=== PATIENT | male | born 1965 | race Two or more races ===

== ENCOUNTER → 2022-05-17 | Outpatient (CLI) | payer BC | END | disposition home or self-care (01) | LOC: RAD 14:24 | PROVIDERS: ATTEND Physician Assistant Medical | DX: S66.811A Strain of other specified muscles, fascia and tendons at wrist and hand level, right hand, initial encounter (principal); M71.521 Other bursitis, not elsewhere classified, right elbow; M25.821 Other specified joint disorders, right elbow; X58.XXXA Exposure to other specified factors, initial encounter; Y93.89 Activity, other specified; Y92.89 Other specified places as the place of occurrence of the external cause; Y99.8 Other external cause status | CPT/HCPCS: 73221 ==